=== PATIENT | female | born 1945 | race Caucasian/White ===

== ENCOUNTER 2019-11-13 23:44 | Emergency (ER) | payer MEDICARE, SELFPAY ==
--- NOTE | ~2019-11-13 | XR_ITS ---
EXAMINATION: XR wrist RT min 3V DATE: 11/14/2019 00:17 INDICATION: Right wrist pain and swelling TECHNIQUE: Posteroanterior, ulnar deviation, oblique, and lateral views of the right wrist were obtai juanis. COMPARISON: none FINDINGS: Nondisplaced dorsally impacted extra-articular fracture of the distal right radius with 18 degrees do rsal tilt of the distal articular surface. Nondisplaced ulnar styloid avulsion fracture. Normal align ment and the carpus. 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 Diffuse osteopenia. Soft tissue swelling about the wrist. IMPRESSION: 1. Dorsally impacted extra articular fracture of the distal right radius. 2. Nondisplaced ulnar styloid avulsion fracture. Reviewed, dictated and finalized at location A.
[2019-11-13 23:43] VITALS: BP 147/73; PULSE 72; RESP 17; TEMP 37; O2SAT 100
--- NOTE | 2019-11-14 01:58 | ED.UPPEXIN ---
HPI - Extremity Injury (Upper) General Chief Complaint: Extremity Injury, Upper Stated Complaint: FALL/NEW HAND FX Time Seen by Provider: 11/14/19 00:42 History of Present Illness HPI narrative: Patient is a 74-year-old female who presents the ER with pain to her right wrist. Patient reports she was sitting on toilet and fell forward striking her wrist. Unfortunately patient has dementia and cannot give any additional history about what occurred. She does have pain with any attempts of range of motion with at rest. Good capillary refill and sensation seems to be intact. Related Data Allergies Allergy/AdvReac Type Severity Reaction Status Date / Time adhesive Allergy Unknown Unknown Verified 11/14/19 00:07 codeine Allergy Unknown Unknown Verified 11/14/19 00:07 latex Allergy Unknown Unknown Verified 11/14/19 00:07 Review of Systems Review of Systems: ROS unobtainable: Yes unobtainable due to mental status PMFSH Past Medical History Medical History (Updated 11/14/19 @ 02:06 by Terence Hurd MD) Anxiety Bronchitis Dementia Depression GERD (gastroesophageal reflux disease) Kidney stones Surgical History Surgical History (Updated 11/14/19 @ 02:03 by Terence Hurd MD) H/O tubal ligation History of appendectomy History of D&C History of shoulder surgery Family History Family History (Updated 01/10/18 @ 15:32 by DOCTOR UNKNOWN) Other Depression Family history of arthritis Family history of malignant neoplasm Social History Social History Smoking status: Never smoker Second hand tobacco smoke exposure: Yes Alcohol intake: never Exam Narrative: Exam Narrative: GENERAL: Well-appearing, well-nourished, and in no acute distress. HEAD: Normocephalic, atraumatic. CHEST: Clear to auscultation. No respiratory distress. HEART: Regular rate and rhythm. Normal peripheral pulses. EXTREMITIES: No pain with passive range of motion bilateral lower extremities. Normal range of motion left upper extremity. Right upper extremity with deformity to the right wrist with swelling and tenderness dorsally. Limited flexion extension due to pain. Normal function of the fingers and elbow. No sensory deficit. Brisk capillary refill and normal radial pulses. SKIN: Warm, dry, no rash. NEURO: Alert and oriented x2. Course Course Emergency Course: Splinted by space technologist. Discharge back to assisted living. Vital Signs Vital signs: Vital Signs Temperature 98.6 F 11/13/19 23:43 Pulse Rate 72 11/13/19 23:43 Respiratory Rate 17 11/13/19 23:43 Blood Pressure 147/73 H 11/13/19 23:43 Pulse Oximetry 100 11/13/19 23:43 Temperature 98.6 F 11/13/19 23:43 Pulse Rate 72 11/13/19 23:43 Respiratory Rate 17 11/13/19 23:43 Blood Pressure 147/73 H 11/13/19 23:43 Pulse Oximetry 100 11/13/19 23:43 Procedures Orthopedic Splinting/Casting Injury #1: Splinting/Casting Date: 11/14/19 Splinting/Casting Time: 01:40 Side: right Upper Extremity Injury Location: wrist Upper Extremity Immobilizer: sugar tong splint Splint: customized in ED Pre-Procedure Neuro Vascular Exam: normal Post-Procedure Neuro Vascular Exam: normal MDM - Extremity Injury (Upper) Imaging Data My impression: XR right wrist: Distal radius fracture with impaction, ulnar styloid fracture. Discharge Plan Discharge Clinical Impression: Distal radius fracture, right, Fracture of right ulnar styloid Patient Disposition: [facility] Condition: Stable Instructions: Wrist Fracture in Adults (ED) Additional Instructions: Contact orthopedic surgery to schedule follow-up evaluation. Return the ER if you suffer new injury, you have chest pain or shortness of breath, you have additional concerns. Follow-up/Referrals: Yash Banks MD [Physician] - 1 Week Dexter Mccormick MD [Primary Care Provider] -
--- NOTE | 2019-11-14 02:02 | PC.NURSE ---
Called [facility] to transport patient. ETA [id number]
[2019-11-14 04:54] VITALS: BP 133/90; PULSE 77; RESP 17; O2SAT 97
== END 2019-11-14 05:00 ==
PROVIDERS: Emergency Provider Emergency Medicine; PCP Family Medicine
DX: S52.551A Other extraarticular fracture of lower end of right radius, initial encounter for closed fracture (principal); S52.614A Nondisplaced fracture of right ulna styloid process, initial encounter for closed fracture; F03.90 Unspecified dementia, unspecified severity, without behavioral disturbance, psychotic disturbance, mood disturbance, and anxiety; F41.9 Anxiety disorder, unspecified; F32.9 Major depressive disorder, single episode, unspecified; K21.9 Gastro-esophageal reflux disease without esophagitis; Z87.442 Personal history of urinary calculi; W18.12XA Fall from or off toilet with subsequent striking against object, initial encounter
CPT/HCPCS: 29125; 73110; 99284; A4565

== ENCOUNTER 2023-06-20 07:45 | Emergency (ER) | payer MEDICARE, SELFPAY ==
--- NOTE | ~2023-06-20 | XR_ITS ---
XR knee RT 3V DATE: 06/20/2023 09:11 INDICATION: Fall. Twisting injury. Pain and swelling and erythema of right knee TECHNIQUE: 3 views including crosstable lateral COMPARISON: None FINDINGS: There is diffuse osteopenia. There is mild to moderate suprapatellar knee joint effusion. There is severe joint space narrowing at the lateral compartment, with lateral and patellofemoral com partment and to a lesser extent medial compartment periarticular spurring. Superior pole patellar enthesopathy at quadriceps tendon insertion. No fracture or dislocation, periosteal reaction or bone destruction, radiopaque intra-articular loose body or chondrocalcinosis is noted. IMPRESSION: Tricompartment osteoarthritis, most severe at the lateral compartment Moderate moderate knee joint effusion Reviewed, dictated and finalized at location B. SKIMMER IMPRESSION: Tricompartment osteoarthritis, most severe at the lateral compartme nt Moderate moderate knee joint effusion
--- NOTE | ~2023-06-20 | XR_ITS ---
XR hip BI 2V w AP pelvis DATE: 06/20/2023 11:04 INDICATION: Fall. Hip pain. TECHNIQUE: AP pelvis. AP and lateral views of each hip. COMPARISON: 04/27/2020 pelvis and left hip FINDINGS: Diffuse osteopenia. Old healed left superior and inferior pubic ramus fractures. Intramedullary nail and screw compression screw of proximal left femur, providing internal fixation f or old intertrochanteric left hip fracture. Normal alignment at the pubic symphysis and sacroiliac joints. No recent pelvic fracture or bone dest ruction is detected. Moderate bilateral hip osteoarthritis. IMPRESSION: Osteopenia Status post ORIF left intertrochanteric hip fracture Old healed left superior and inferior pubic ramus fractures Moderate bilateral hip osteoarthritis Reviewed, dictated and finalized at location B. ULA TECHNICIAN
--- NOTE | ~2023-06-20 | XR_ITS ---
EXAMINATION: XR knee LT 3V DATE: 06/20/2023 09:11 INDICATION: Left knee pain. TECHNIQUE: 3 views of left knee were obtained. COMPARISON: Left knee radiographs 04/05/2018 FINDINGS: Bone alignment is normal. No fracture. There is severe tricompartmental osteoarthritis. No knee joint effusion. IMPRESSION: 1. Severe left knee osteoarthritis. Reviewed, dictated and finalized at location A. INSTALLER
[2023-06-20 07:53] VITALS: BP 150/102; PULSE 78; RESP 18; TEMP 37.3; O2SAT 95
--- NOTE | 2023-06-20 08:39 | ED.FALL ---
HPI - Fall General Chief Complaint: Fall Stated Complaint: fall Time Seen by Provider: 06/20/23 07:50 History of Present Illness HPI Narrative: patient is a 78-year-old female with history of dementia who presents ER after falling out of her bed. She was reporting knee pain so she was sent for evaluation. She does have redness to the right knee. Her left knee also is having some tenderness and is mildly flex. According to long-term patient is nonambulatory and has contractures from her lack of mobility. Nose no concern for head trauma patient is not on any antibiotics. She is keenly alert and pleasant to talk to. She reports no pain at this time. Related Data Home Medications Medication Instructions Recorded Confirmed acetaminophen 325 mg tablet 325 mg PO Q6H PRN 11/19/19 04/10/20 (Tylenol) alendronate 70 mg tablet 70 mg PO WEEKLY 11/19/19 04/10/20 bupropion HCl 150 mg tablet,12 hr 150 mg PO BID 11/19/19 04/10/20 sustained-release (Wellbutrin SR) cholecalciferol (vitamin D3) 50 50 mcg PO DAILY 11/19/19 04/10/20 mcg (2,000 unit) chewable tablet cranberry extract-vitamin C 250 cap PO 11/19/19 04/10/20 mg-60 mg capsule (Azo Cranberry Plus Vit C) latanoprost 0.005 % eye drops, 1 drop ophthalmic (eye) QPM 11/19/19 04/10/20 emulsion naproxen 500 mg tablet 500 mg PO BID 11/19/19 04/10/20 sertraline 100 mg tablet 100 mg PO DAILY 11/19/19 04/10/20 sulfamethoxazole 400 1 tablet PO DAILY 11/19/19 04/10/20 mg-trimethoprim 80 mg tablet (Bactrim) Allergies Allergy/AdvReac Type Severity Reaction Status Date / Time adhesive Allergy Unknown Unknown Verified 04/10/20 15:02 codeine Allergy Unknown Unknown Verified 04/10/20 15:02 latex Allergy Unknown Unknown Verified 04/10/20 15:02 Review of Systems Review of Systems: ROS unobtainable: Yes unobtainable due to mental status PMFSH Past Medical History Medical History (Updated 06/20/23 @ 11:50 by Terence Hurd MD) Anxiety Arthritis Bronchitis Degenerative joint disease of knee Dementia Depression Diarrhea GERD (gastroesophageal reflux disease) Kidney stones Left knee pain Osteoporosis Right wrist fracture Urinary frequency Vision abnormalities Surgical History Surgical History H/O tubal ligation History of appendectomy History of D&C History of shoulder surgery Family History Family History Other Depression Family history of arthritis Family history of malignant neoplasm Social History Social History Smoking status: Never smoker Second hand tobacco smoke exposure: Yes Alcohol intake: never Gender identity (if verbalized by the patient): Female Exam Narrative: GENERAL: Well-appearing, well-nourished, and in no acute distress. HEAD: Normocephalic, atraumatic. EYES: PERRL and EOMI. ENT: Mucous membranes moist. CHEST: Clear to auscultation. No respiratory distress. HEART: Regular rate and rhythm. Normal peripheral pulses. ABDOMEN: Soft, nontender, nondistended. EXTREMITIES: Right knee with redness anteriorly consistent with abrasion. There is no point tenderness. Patient cannot perform range of motion in either knee. Left knee is tender to palpation along the joint line. No hip tenderness bilaterally. Normal upper extremities bilaterally. SKIN: Warm, dry, no rash. NEURO: Alert and oriented x1. PSYCH: Normal mood and affect. Course Course Emergency Course: Patient resting comfortably. Family raise question of possible injury hips would like that evaluated. All imaging without acute fracture injury. Patient appropriate for discharge back to facility. Vital Signs Vital signs: Vital Signs Temperature 99.1 F 06/20/23 07:53 Pulse Rate 78 06/20/23 07:53 Respiratory Rate 18 06/20/23 07:53 Blood Pressure 150/102 H 0
[2023-06-20 12:10] VITALS: TEMP 36.7
== END 2023-06-20 12:46 | disposition home or self-care (01) ==
PROVIDERS: Emergency Provider Emergency Medicine; PCP Family Medicine
DX: S80.211A Abrasion, right knee, initial encounter (principal); F03.90 Unspecified dementia, unspecified severity, without behavioral disturbance, psychotic disturbance, mood disturbance, and anxiety; K21.9 Gastro-esophageal reflux disease without esophagitis; M19.90 Unspecified osteoarthritis, unspecified site; M81.0 Age-related osteoporosis without current pathological fracture; F41.9 Anxiety disorder, unspecified; F32.A Depression, unspecified; Z87.442 Personal history of urinary calculi; M17.0 Bilateral primary osteoarthritis of knee; W06.XXXA Fall from bed, initial encounter
CPT/HCPCS: 73521; 73562; 99284

== ENCOUNTER 2023-06-29 12:59 | Emergency (ER) | payer MEDICARE, SELFPAY ==
--- NOTE | ~2023-06-29 | XR_ITS ---
EXAMINATION: XR chest 1V portable DATE: 06/29/2023 13:24 INDICATION: Altered mental status. Weakness. Dementia. TECHNIQUE: frontal view of the chest was obtained. COMPARISON: Chest radiograph dated 08/18/2016 FINDINGS: Patient is rotated slightly towards the left. Costochondral calcifications projecting over the lungs. Mild increased interstitial pattern in the bilateral perihilar regions and right lower lung zone wit h mild bronchial wall thickening. No pleural effusion or pneumothorax heart size is normal. Tortuous thoracic aorta centered about the leftward rotation of the patient. IMPRESSION: 1. Mild interstitial pattern and mild bronchial wall thickening the bilateral perihilar regions and r ight lower lung zone which could be seen with mild pulmonary edema, bronchitis, reactive or disease/a sthma or mild bronchiectasis related to chronic infection. Reviewed, dictated and finalized at location A. COMPILER IMPRESSION: 1. Mild interstitial pattern and mild bronchial wall thickening the bilateral p erihilar regions and right lower lung zone which could be seen with mild pulmon siva edema, bronchitis, reactive or disease/asthma or mild bronchiectasis relate d to chronic infection.
--- NOTE | ~2023-06-29 | CT_ITS ---
EXAMINATION: CT brain wo con INDICATION: Altered mental status COMPARISON: 08/18/2016 TECHNIQUE: Standard unenhanced head CT. The dose-length product (DLP) was 605.33 mGy-cm. The mA was a djusted according to patient size. Iterative reconstruction technique was employed. FINDINGS: No acute intraparenchymal hemorrhage. No evidence of mass lesion. No evidence of acute infa rction. There is moderate periventricular and subcortical hypodensity probably related to small vesse l ischemic disease. There is moderate prominence of the sulci and ventricles related to cerebral atro phy. Intracranial calcified cerebral atherosclerosis is noted. No extra-axial collections. No mass ef fect or midline shift. The orbits and soft tissues are unremarkable. There is mild mucosal thickening of the paranasal sinuses. IMPRESSION: 1. No acute intracranial abnormality. 2. Age related findings. Reviewed, dictated and finalized at location B. GER TECHNICAL TRAINING
[2023-06-29 12:59] VITALS: BP 151/97; PULSE 86; RESP 16; TEMP 36.6; O2SAT 100
--- NOTE | 2023-06-29 13:10 | ECG_ITS ---
Measurements Intervals [place] Rate: 89 P: 46 ND: 161 QRS: 12 QRSD: 82 T: 43 QT: 350 QTc: 426 Interpretive Statements SINUS RHYTHM WITH SINUS ARRHYTHMIA BORDERLINE ECG NO PREVIOUS ECG AVAILABLE FOR COMPARISON Electronically Signed On 06-29-2023 16:30:21 INSURANCE RISK ANALYST by Michele Mcgee M.D.
--- NOTE | 2023-06-29 13:10 | ED.GENADULT ---
HPI - General Adult General Chief complaint: Neuro Symptoms/Deficit Stated complaint: stroke like symptoms Source: EMS Mode of arrival: EMS History of Present Illness HPI narrative: 78 years old white female came from memory care unit by ambulance because after waking up at noon was little bit less responsive than normal. On arrival to the ED patient is awake, alert, oriented to her name only does not look in pain or distress. She denies any symptoms. History of Alzheimer, dementia, TBI, depression, chronic pain all over. Patient is DNR Related Data Home Medications Medication Instructions Recorded Confirmed acetaminophen 325 mg tablet 325 mg PO Q6H PRN 11/19/19 04/10/20 (Tylenol) alendronate 70 mg tablet 70 mg PO WEEKLY 11/19/19 04/10/20 bupropion HCl 150 mg tablet,12 hr 150 mg PO BID 11/19/19 04/10/20 sustained-release (Wellbutrin SR) cholecalciferol (vitamin D3) 50 50 mcg PO DAILY 11/19/19 04/10/20 mcg (2,000 unit) chewable tablet cranberry extract-vitamin C 250 cap PO 11/19/19 04/10/20 mg-60 mg capsule (Azo Cranberry Plus Vit C) latanoprost 0.005 % eye drops, 1 drop ophthalmic (eye) QPM 11/19/19 04/10/20 emulsion naproxen 500 mg tablet 500 mg PO BID 11/19/19 04/10/20 sertraline 100 mg tablet 100 mg PO DAILY 11/19/19 04/10/20 sulfamethoxazole 400 1 tablet PO DAILY 11/19/19 04/10/20 mg-trimethoprim 80 mg tablet (Bactrim) Allergies Allergy/AdvReac Type Severity Reaction Status Date / Time adhesive Allergy Unknown Unknown Verified 04/10/20 15:02 codeine Allergy Unknown Unknown Verified 04/10/20 15:02 latex Allergy Unknown Unknown Verified 04/10/20 15:02 Review of Systems Review of Systems: All systems reviewed & are unremarkable except as noted in HPI and below PMFSH Past Medical History Medical History (Updated 06/29/23 @ 15:56 by Windy Daniel MD) Anxiety Arthritis Bronchitis Degenerative joint disease of knee Dementia Depression Diarrhea GERD (gastroesophageal reflux disease) Kidney stones Left knee pain Osteoporosis Right wrist fracture Urinary frequency Vision abnormalities Surgical History Surgical History H/O tubal ligation History of appendectomy History of D&C History of shoulder surgery Family History Family History Other Depression Family history of arthritis Family history of malignant neoplasm Social History Social History Smoking status: Never smoker Second hand tobacco smoke exposure: Yes Alcohol intake: never Gender identity (if verbalized by the patient): Female Exam Narrative: General appearance: Well-developed, well-nourished Skin: Normal color Head: Normocephalic, nontraumatic Eyes: Clear conjunctiva ENT: Oropharynx normal, ears normal, nose normal Neck: Supple, nontender Chest and respiratory: Airway patent, no respiratory distress, no accessory muscle use Heart: Regular rate/rhythm Abdomen: Soft, nontender, no organomegaly, quiet bowel sounds Vascular: Normal peripheral pulses, normal capillary refill. Musculoskeletal: Stiffness of the lower extremity bilaterally, Neurologic: Alert and oriented oriented to her name only Course Reevaluation(s) Reevaluation #1: No changes compared to on arrival to the ED Date: 06/29/23 Time: 16:04 Vital Signs Vital signs: Vital Signs Temperature 36.6 C 06/29/23 12:59 Pulse Rate 86 06/29/23 12:59 Respiratory Rate 16 06/29/23 12:59 Blood Pressure 151/97 H 06/29/23 12:59 Pulse Oximetry 100 06/29/23 12:59 Oxygen Delivery Room Air
[2023-06-29 13:17] VITALS: BP 151/97; PULSE 83; RESP 16; TEMP 36.6; O2SAT 100
[2023-06-29 13:22] LABS: Glucose Point of Care 90 mg/dl (65-105)
[2023-06-29 14:02] LABS: Basophils Absolute Auto 0.1 K/mm3 (0.0-0.1); Basophils Percent Auto 1.6 % (0.2-1.2); Eosinophils Absolute Auto 0.8 K/mm3 (0-0.3); Eosinophils Percent Auto 10.2 % (0-4.4); Hematocrit 36.8 % (37.0-47.0); Hemoglobin 11.2 g/dL (12.0-15.0); Immature Granulocyte Absolute 0.09 K/mm3 (0.00-0.031); Immature Granulocyte Percent A 1.1 % (0-0.5); Lymphocytes Absolute Auto 2.01 K/mm3 (0.9-3.2); Lymphocytes Percent Auto 25.4 % (18.3-44.2); Mean Corpuscular HGB Conc 30.4 g/dl (32-36); Mean Corpuscular Hemoglobin 30.7 pg (26-34); Mean Corpuscular Volume 100.8 fl (80-100); Monocytes Absolute Auto 0.7 K/mm3 (0.1-0.6); Monocytes Percent Auto 9.1 % (2.6-8.5); Neutrophils Absolute Auto 4.2 K/mm3 (1.3-6.7); Neutrophils Percent Auto 52.6 % (45.5-73.1); Platelet Count Result 387 k/mm3 (150-375); Red Blood Count 3.65 M/mm3 (4.2-5.4); Red Cell Distribution Width 13.1 % (11.5-14.5); White Blood Count 7.9 K/mm3 (4.5-10.0)
[2023-06-29 14:10] LABS: Alanine Aminotransferase 12 U/L (6-35); Albumin Level 4.1 g/dL (3.5-5.1); Alkaline Phosphatase 234 U/L (38-126); Anion Gap 8 mmol/L (8-16); Aspartate Amino Transferase 23 U/L (14-36); Bilirubin,Total 0.7 mg/dL (0.2-1.3); Blood Urea Nitrogen 28 mg/dL (7-17); Calcium 10.8 mg/dL (8.4-10.2); Carbon Dioxide 25 mmol/L (22-30); Chloride 108 mmol/L (98-107); Creatine Kinase 40 U/L (30-135); Estimated CRCL calculation 33 ml/min; Estimated Glomerular Filt Rate 48; Glucose 85 mg/dL (65-110); Potassium 3.9 mmol/L (3.4-5.0); Prothrombin Time 13.6 Seconds (11.1-14.7); Sodium 141 mmol/L (137-145)
[2023-06-29 14:11] LABS: Partial Thromboplastin Time 39.3 SECONDS (22.3-36.8)
[2023-06-29 14:21] LABS: Troponin I < 0.012 ng/mL (0.000-0.034)
[2023-06-29 14:48] VITALS: BP 146/83; PULSE 70; RESP 13; TEMP 36.6; O2SAT 100
[2023-06-29 15:04] LABS: Appearance Urine Turbid (Clear); Bacteria Urine 4+ /hpf; Bilirubin Urine Negative (Negative); Blood Urine 3+ (Negative); Color Urine Yellow (Yellow); Glucose Urine UA Negative (Negative); Ketones Urine Negative (Negative); Leukocyte Esterase Ur 3+ LEU/UL (Negative); Need Manual Microscopic Reviewed; Nitrate Urine Positive (Negative); Protein Urine 2+ mg/dL (Negative); RBC Urine >100 /hpf (0-2); Specific Grav Ur 1.018 (1.001-1.035); Squamous Epithelial Cell Urine Moderate /hpf (Few); WBC Urine >100 /hpf
[2023-06-29 15:06] LABS: Add Urine Microscopic? YES
[2023-06-29] MEDS: CIPROFLOXACIN 500 MG TAB PO (16:06)
[2023-06-29 17:00] VITALS: BP 130/90; PULSE 70; RESP 14; TEMP 36.6; O2SAT 100
[2023-06-29 19:02] VITALS: BP 153/88; PULSE 87; RESP 18; O2SAT 95
== END 2023-06-29 20:20 ==
PROVIDERS: Emergency Provider Emergency Medicine; PCP Family Medicine
DX: N39.0 Urinary tract infection, site not specified (principal); E86.0 Dehydration; G30.9 Alzheimer's disease, unspecified; F02.80 Dementia in other diseases classified elsewhere, unspecified severity, without behavioral disturbance, psychotic disturbance, mood disturbance, and anxiety; M19.90 Unspecified osteoarthritis, unspecified site; K21.9 Gastro-esophageal reflux disease without esophagitis; Z66 Do not resuscitate; F32.A Depression, unspecified; F41.9 Anxiety disorder, unspecified; Z87.820 Personal history of traumatic brain injury; Z87.442 Personal history of urinary calculi; R94.31 Abnormal electrocardiogram [ECG] [EKG]; R91.8 Other nonspecific abnormal finding of lung field
CPT/HCPCS: 36415; 70450; 71045; 80053; 81001; 82550; 82948; 84484; 85025; 85610; 85730; 87040; 87077; 87086; 87186; 93005; 99284; A9270